=== PATIENT | female | born 1995 | race American Indian/Alaskan Native ===

== ENCOUNTER 2017-04-11 11:47 | Emergency (ER) | payer OTHER ==
[2017-04-11 17:35] VITALS: BP 133/96
[2017-04-11] MEDS ORDERED: FLEXERIL PO ONE (17:58)
[2017-04-11] MEDS ORDERED: TORADOL IM ONE (17:58)
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
--- NOTE | 2017-04-11 19:12 | Cat Scan Report ---
FINAL REPORT PROCEDURE: CT CERVICAL SPINE WO CON TECHNIQUE: Computerized tomography of the cervical spine was performed from the skull base to T1 without contrast material. HISTORY: cervical sopine pain COMPARISON: No prior studies are available for comparison. FINDINGS: C1-2: No significant abnormality. C2-3: No significant abnormality. C3-4: No significant abnormality. C4-5: No significant abnormality. C5-6: No significant abnormality. C6-7: No significant abnormality. C7-T1: No significant abnormality. Other: No additional findings. If symptoms and or concern persists recommend MRI IMPRESSION: No definite evidence of acute cervical spine fracture.
== END 2017-04-11 19:45 | disposition home or self-care (01) ==
LOC: ED 11:47
DX: S16.1XXA Strain of muscle, fascia and tendon at neck level, initial encounter (principal); V49.49XA Driver injured in collision with other motor vehicles in traffic accident, initial encounter; Y93.89 Activity, other specified; Y92.89 Other specified places as the place of occurrence of the external cause; Y99.8 Other external cause status; F17.200 Nicotine dependence, unspecified, uncomplicated; F12.10 Cannabis abuse, uncomplicated
CPT/HCPCS: 72125; 96372; 99283; J1885